=== PATIENT | female | born 1945 | race Caucasian/White ===

== ENCOUNTER 2019-08-12 15:06 | Outpatient (CLI) | payer MEDICARE ==
--- NOTE | 2019-08-12 15:26 | RAD ---
EXAM: Chest 2 views: HISTORY: Cough COMPARISON: 05/01/2017 FINDINGS: There is a normal-sized cardiomediastinal silhouette. There is no evidence of consolidation, mass, or pleural effusion. The bones are unremarkable. IMPRESSION: No evidence of acute cardiopulmonary disease
== END 2019-08-12 15:07 | disposition home or self-care (01) ==
LOC: MADRAD 15:06
PROVIDERS: ATTEND Physician Assistant
DX: R05 Cough (principal)
CPT/HCPCS: 71046

== ENCOUNTER 2019-10-23 13:53 | Inpatient (IN) | payer MEDICARE ==
[2019-10-23] MEDS ORDERED: HYDROcodone/Acetaminophen 5/325 mg Tablet PO PRN (19:32)
[2019-10-23] MEDS ORDERED: Bisacodyl 5 MG TAB PO PRN (19:32)
[2019-10-23] MEDS ORDERED: Acetaminophen 325 MG TAB PO PRN (19:34)
[2019-10-23] MEDS ORDERED: Ondansetron ODT 4 MG TAB PO PRN (19:34)
[2019-10-23] MEDS ORDERED: Ondansetron ODT 4 MG TAB SL PRN (20:00)
[2019-10-23] MEDS: Docusate 100 MG CAP PO SCH (20:51)
[2019-10-23] MEDS: HYDROcodone/Acetaminophen 5/325 mg Tablet PO PRN (20:52)
[2019-10-23] MEDS: Famotidine 20 MG TAB PO SCH (20:52)
[2019-10-23] MEDS: Zolpidem Tartrate 5 MG TAB PO PRN (21:46)
[2019-10-24] MEDS: HYDROcodone/Acetaminophen 5/325 mg Tablet PO PRN ×4 (06:13→19:54)
[2019-10-24] MEDS: Docusate 100 MG CAP PO SCH ×2 (08:42→20:49)
[2019-10-24] MEDS: Enoxaparin Sodium 40 MG/0.4 ML SYRINGE SC SCH (08:42)
[2019-10-24] MEDS: Losartan 25 MG TAB PO SCH (08:43)
[2019-10-24] MEDS: Hydrochlorothiazide 25 MG TAB PO SCH (08:43)
[2019-10-24] MEDS: FLUoxetine HCl 20 MG CAP PO SCH (08:43)
[2019-10-24] MEDS: Famotidine 20 MG TAB PO SCH ×2 (08:45→20:50)
[2019-10-24] MEDS ORDERED: Azithromycin 250 MG TAB PO SCH (13:00)
[2019-10-24] MEDS ORDERED: predniSONE 20 MG TAB PO SCH ×2 (13:00→13:15)
--- NOTE | 2019-10-24 14:42 | RAD ---
CHEST 2 VIEWS: HISTORY: Wheezing and shortness of breath. COMPARISON: Radiograph 08/12/2019. FINDINGS: Partially calcified breast implants. The contour is mildly tortuous. Lungs are without focal conflu ent airspace consolidation, pneumothorax, or effusion. No acute osseous abnormality. Old right disk clavicular fracture is healed. IMPRESSION: 1. No acute intrathoracic abnormality. 2. Healing right disk clavicular fracture. POS: OFF
[2019-10-24] MEDS: Montelukast Sodium 10 mg Tablet PO SCH (20:49)
[2019-10-24] MEDS: Zolpidem Tartrate 5 MG TAB PO PRN (22:33)
[2019-10-25] MEDS: HYDROcodone/Acetaminophen 5/325 mg Tablet PO PRN ×4 (05:19→20:12)
[2019-10-25] MEDS: Polyethylene Glycol 3350 17 GM Packet PO SCH (08:50)
[2019-10-25] MEDS: Enoxaparin Sodium 40 MG/0.4 ML SYRINGE SC SCH (08:50)
[2019-10-25] MEDS: Docusate 100 MG CAP PO SCH ×2 (08:50→20:17)
[2019-10-25] MEDS: Losartan 25 MG TAB PO SCH (08:51)
[2019-10-25] MEDS: Hydrochlorothiazide 25 MG TAB PO SCH (08:51)
[2019-10-25] MEDS: Famotidine 20 MG TAB PO SCH ×2 (08:51→20:15)
[2019-10-25] MEDS: FLUoxetine HCl 20 MG CAP PO SCH (08:51)
[2019-10-25] MEDS: Magnesium Oxide 400 MG TAB PO SCH (08:51)
[2019-10-25] MEDS ORDERED: MAGNESIUM OXIDE 200 MG PO SCH (09:00)
[2019-10-25] MEDS ORDERED: Azithromycin 250 MG TAB PO SCH (13:00)
[2019-10-25] MEDS: Zolpidem Tartrate 5 MG TAB PO PRN (20:13)
[2019-10-25] MEDS: Montelukast Sodium 10 mg Tablet PO SCH (20:15)
[2019-10-26] MEDS: Losartan 25 MG TAB PO SCH (09:00)
[2019-10-26] MEDS: Docusate 100 MG CAP PO SCH ×2 (09:00→20:25)
[2019-10-26] MEDS: Enoxaparin Sodium 40 MG/0.4 ML SYRINGE SC SCH (09:00)
[2019-10-26] MEDS: Famotidine 20 MG TAB PO SCH ×2 (09:01→20:25)
[2019-10-26] MEDS: FLUoxetine HCl 20 MG CAP PO SCH (09:01)
[2019-10-26] MEDS: Hydrochlorothiazide 25 MG TAB PO SCH (09:01)
[2019-10-26] MEDS: Magnesium Oxide 400 MG TAB PO SCH (09:01)
[2019-10-26] MEDS: Polyethylene Glycol 3350 17 GM Packet PO SCH (09:02)
[2019-10-26] MEDS: HYDROcodone/Acetaminophen 5/325 mg Tablet PO PRN ×3 (11:01→18:55)
[2019-10-26] MEDS ORDERED: Bisacodyl 10 MG SUPP PR PRN (18:10)
[2019-10-26] MEDS ORDERED: Bisacodyl 5 MG TAB PO PRN (18:10)
[2019-10-26] MEDS ORDERED: Fleet Enema 133 ML BOT FS PRN (18:11)
[2019-10-26] MEDS: Montelukast Sodium 10 mg Tablet PO SCH (20:25)
[2019-10-26] MEDS: Zolpidem Tartrate 5 MG TAB PO PRN (21:13)
[2019-10-27] MEDS: HYDROcodone/Acetaminophen 5/325 mg Tablet PO PRN (06:06)
[2019-10-27] MEDS: Losartan 25 MG TAB PO SCH (08:44)
[2019-10-27] MEDS: Magnesium Oxide 400 MG TAB PO SCH (08:44)
[2019-10-27] MEDS: Enoxaparin Sodium 40 MG/0.4 ML SYRINGE SC SCH (08:45)
[2019-10-27] MEDS: Famotidine 20 MG TAB PO SCH ×2 (08:45→20:37)
[2019-10-27] MEDS: Polyethylene Glycol 3350 17 GM Packet PO SCH (08:45)
[2019-10-27] MEDS: Hydrochlorothiazide 25 MG TAB PO SCH (08:45)
[2019-10-27] MEDS: Docusate 100 MG CAP PO SCH ×2 (08:46→20:37)
[2019-10-27] MEDS: FLUoxetine HCl 20 MG CAP PO SCH (08:49)
--- NOTE | 2019-10-27 08:59 | HP ---
PRIMARY CARE PHYSICIAN: Dr. Lashay Hardwick. REASON FOR ADMISSION: For skilled rehabilitation status post right intertrochanteric femur fracture, status post internal fixation of the repair. HISTORY OF PRESENT ILLNESS: Ms. English is a 73-year-old female with a medical history of hypertension, hyperlipidemia, questionable Parkinson disease, asthma, prolonged QT interval, and history of breast cancer. The patient states she was in her home and stepped back while brushing her teeth and tripped on a rug, and landed on right side. She did not lose any consciousness. She did not have immediate pain until she tried to move and she was unable to stand , so she presented to the emergency room. In the ER, she was found to have a right intertrochanteric femur fracture. She denies any pain anywhere else and she denies any chest pain, lightheadedness, dizziness, or palpitations prior to fall. The patient also admitted to exertional dyspnea for the past 6 months and was scheduled to see a capability lead in November for this. She was sent to [facility], and she was evaluated by the orthopedic surgeon, Dr. Perez, who went ahead and performed internal fixation and IM nailing of the right proximal femur. The patient did not have any complications postoperatively and she was able to start mild therapy when she was in [facility]. She states she was not able to get out of bed yet. The decision was made to transfer the patient here as she lives at home with her 76-year-old , who is also aged and it was best to transfer here for skilled rehabilitation prior to discharge back to her home. Upon evaluation of the patient today, she was very happy to be in the facility. She complains of some shortness of breath and wheezing. She denies any chest pain. She denies any palpitation. She denies any nausea or vomiting. No fevers. PAST MEDICAL HISTORY: Hypertension, hyperlipidemia, depression, asthma. PAST SURGICAL HISTORY: The patient denies any surgery. CODE STATUS: The patient is a full code. Her is a surrogate decision maker. SOCIAL HISTORY: The patient lives at home with her in [facility]. She is . She has been off tobacco use for over 30 years. Alcohol, she states she has 1 to 2 alcohol drinks with vodka daily. She denies any illicit drug use. FAMILY HISTORY: Mother of congestive heart failure at the age of 80. Father at old age of 90. REVIEW OF SYSTEMS: GENERAL: The patient denies fever, chills, or nausea. HEENT: No headache, ear pain, rhinorrhea, no vision changes. RESPIRATORY: The patient complains of wheezing, exertional shortness of breath. CARDIOVASCULAR: Denies chest pain, palpitations, syncope, or peripheral edema. GASTROINTESTINAL: Denies nausea, vomiting, or abdominal pain. No change in bowel habits. GENITOURINARY: Denies dysuria or hematuria. MUSCULOSKELETAL: The patient complains of gait instability and right hip pain. HEMATOLOGICAL: Denies bruising or bleeding easily. NEUROLOGICAL: No focal deficits. DERMATOLOGIC: No rashes. PSYCHIATRIC: Complains of depression, controlled with fluoxetine. MEDICATIONS: 1. Prozac 40 daily. 2. Hydrochlorothiazide 25 daily. 3. Mag-Ox 200 daily. 4. Losartan 50 daily. 5. Atorvastatin 10 mg daily. PHYSICAL EXAMINATION: VITAL SIGNS: Temperature 97.6, pulse 92, respirations 18, O2 saturations 96% on 2 L nasal cannula, and blood pressure 133/63. GENERAL: The patient is alert, awake, and oriented x3. Very pleasant, cooperative, interactive, in no apparent distress. HEENT: Normocephalic, atraumatic. Oral; moist mucous membranes. Front upper teeth chipped. EOMs intact. CARDIOVASCULAR: S1 and S2. No murmurs. RESPIRATORY: Bilateral wheezing. No crackles. No rales. ABDOMEN: Positive bowel sounds. Soft, nontender, nondistended. EXTREMITIES: No edema. SKIN: Lateral right hip with incision site with radha in place. No drainage. No signs of infection. Mild bruising. PSYCHIATRIC: Normal affect. NEUROLOGIC: Cranial nerves 2 through 12 grossly intact. ASSESSMENT: 1. Physical deconditioning. 2. Status post IM nailing and internal fixation of right femur. 3. Exertional dyspnea. 4. Acute mild asthma exacerbation. 5. Hypertension. 6. Depression. PLAN: The patient is a 73-year-old female, who has been admitted for acute rehabilitation, status post fall resulted in a fracture of the right femur. The patient is now status post IM nailing and IF. We will consult Physical Therapy to help with gait strengthening, balance, and ambulation. We will consult Occupational Therapy to help with activities of daily living. We will place the patient on Lovenox for DVT prophylaxis and Pepcid for GI prophylaxis. We will restart the patient's home medications. We will place the patient on [place] p.r.n. for pain. For asthma, we will start the patient on DuoNeb q.6 p.r.n. We will slowly try to wean the patient off nasal cannula oxygen. We will monitor the patient closely for any hemodynamic instability. We will start the patient on Singulair. ESTIMATED LENGTH OF STAY: 3 to 4 weeks. DISCHARGE DISPOSITION: Back to home with her . Job ID: [id number] MTDD
[2019-10-27] MEDS: HYDROcodone/Acetaminophen 7.5/325 mg Tablet PO PRN ×2 (10:59→19:27)
[2019-10-27] MEDS ORDERED: predniSONE 20 MG TAB PO SCH (14:00)
[2019-10-27] MEDS ORDERED: Azithromycin 250 MG TAB PO SCH (14:00)
[2019-10-27] MEDS: Montelukast Sodium 10 mg Tablet PO SCH (20:36)
[2019-10-27] MEDS: Zolpidem Tartrate 5 MG TAB PO PRN (21:32)
[2019-10-28] MEDS: HYDROcodone/Acetaminophen 7.5/325 mg Tablet PO PRN ×4 (04:03→20:51)
[2019-10-28] MEDS: Azithromycin 250 MG TAB PO SCH (08:35)
[2019-10-28] MEDS: Docusate 100 MG CAP PO SCH ×2 (08:35→20:47)
[2019-10-28] MEDS: Famotidine 20 MG TAB PO SCH ×2 (08:35→20:47)
[2019-10-28] MEDS: FLUoxetine HCl 20 MG CAP PO SCH (08:35)
[2019-10-28] MEDS: predniSONE 20 MG TAB PO SCH (08:35)
[2019-10-28] MEDS: Magnesium Oxide 400 MG TAB PO SCH (08:36)
[2019-10-28] MEDS: Hydrochlorothiazide 25 MG TAB PO SCH (08:36)
[2019-10-28] MEDS: Losartan 25 MG TAB PO SCH (08:36)
[2019-10-28] MEDS: Polyethylene Glycol 3350 17 GM Packet PO SCH (08:37)
[2019-10-28] MEDS: Enoxaparin Sodium 40 MG/0.4 ML SYRINGE SC SCH (08:37)
[2019-10-28] MEDS: Montelukast Sodium 10 mg Tablet PO SCH (20:47)
[2019-10-28] MEDS: Zolpidem Tartrate 5 MG TAB PO PRN (21:30)
[2019-10-29] MEDS: HYDROcodone/Acetaminophen 7.5/325 mg Tablet PO PRN ×4 (03:52→18:11)
[2019-10-29] MEDS: Magnesium Oxide 400 MG TAB PO SCH (08:16)
[2019-10-29] MEDS: FLUoxetine HCl 20 MG CAP PO SCH (08:16)
[2019-10-29] MEDS: Azithromycin 250 MG TAB PO SCH (08:16)
[2019-10-29] MEDS: Docusate 100 MG CAP PO SCH ×2 (08:17→20:28)
[2019-10-29] MEDS: Hydrochlorothiazide 25 MG TAB PO SCH (08:17)
[2019-10-29] MEDS: Losartan 25 MG TAB PO SCH (08:17)
[2019-10-29] MEDS: predniSONE 20 MG TAB PO SCH (08:17)
[2019-10-29] MEDS: Enoxaparin Sodium 40 MG/0.4 ML SYRINGE SC SCH (08:18)
[2019-10-29] MEDS: Famotidine 20 MG TAB PO SCH ×2 (08:19→20:29)
[2019-10-29] MEDS: Polyethylene Glycol 3350 17 GM Packet PO SCH (08:19)
[2019-10-29] MEDS: Montelukast Sodium 10 mg Tablet PO SCH (20:29)
[2019-10-29] MEDS: Zolpidem Tartrate 5 MG TAB PO PRN (21:28)
[2019-10-30] MEDS: HYDROcodone/Acetaminophen 7.5/325 mg Tablet PO PRN ×5 (01:49→21:40)
[2019-10-30] MEDS: Losartan 25 MG TAB PO SCH (09:08)
[2019-10-30] MEDS: Hydrochlorothiazide 25 MG TAB PO SCH (09:08)
[2019-10-30] MEDS: Docusate 100 MG CAP PO SCH ×2 (09:08→20:21)
[2019-10-30] MEDS: Famotidine 20 MG TAB PO SCH ×2 (09:08→20:22)
[2019-10-30] MEDS: Polyethylene Glycol 3350 17 GM Packet PO SCH (09:08)
[2019-10-30] MEDS: Enoxaparin Sodium 40 MG/0.4 ML SYRINGE SC SCH (09:08)
[2019-10-30] MEDS: Magnesium Oxide 400 MG TAB PO SCH (09:08)
[2019-10-30] MEDS: FLUoxetine HCl 20 MG CAP PO SCH (09:11)
[2019-10-30 12:04] VITALS: BMI 22.6
[2019-10-30] MEDS: Montelukast Sodium 10 mg Tablet PO SCH (20:22)
[2019-10-30] MEDS: Zolpidem Tartrate 5 MG TAB PO PRN (22:46)
[2019-10-31] MEDS: HYDROcodone/Acetaminophen 7.5/325 mg Tablet PO PRN ×3 (08:21→19:47)
[2019-10-31] MEDS: FLUoxetine HCl 20 MG CAP PO SCH (08:22)
[2019-10-31] MEDS: Hydrochlorothiazide 25 MG TAB PO SCH (08:23)
[2019-10-31] MEDS: Docusate 100 MG CAP PO SCH ×2 (08:23→21:45)
[2019-10-31] MEDS: Famotidine 20 MG TAB PO SCH ×2 (08:23→21:44)
[2019-10-31] MEDS: Losartan 25 MG TAB PO SCH (08:23)
[2019-10-31] MEDS: Magnesium Oxide 400 MG TAB PO SCH (08:23)
[2019-10-31] MEDS: Polyethylene Glycol 3350 17 GM Packet PO SCH (08:24)
[2019-10-31] MEDS: Enoxaparin Sodium 40 MG/0.4 ML SYRINGE SC SCH (08:24)
[2019-10-31] MEDS: Zolpidem Tartrate 5 MG TAB PO PRN (21:44)
[2019-10-31] MEDS: Montelukast Sodium 10 mg Tablet PO SCH (21:44)
[2019-11-01] MEDS: Losartan 25 MG TAB PO SCH (08:20)
[2019-11-01] MEDS: FLUoxetine HCl 20 MG CAP PO SCH (08:20)
[2019-11-01] MEDS: Famotidine 20 MG TAB PO SCH ×2 (08:21→21:23)
[2019-11-01] MEDS: Hydrochlorothiazide 25 MG TAB PO SCH (08:21)
[2019-11-01] MEDS: Magnesium Oxide 400 MG TAB PO SCH (08:21)
[2019-11-01] MEDS: Enoxaparin Sodium 40 MG/0.4 ML SYRINGE SC SCH (08:21)
[2019-11-01] MEDS: Polyethylene Glycol 3350 17 GM Packet PO SCH (08:23)
[2019-11-01] MEDS: Docusate 100 MG CAP PO SCH ×2 (08:23→21:25)
[2019-11-01] MEDS: HYDROcodone/Acetaminophen 7.5/325 mg Tablet PO PRN ×3 (08:49→21:24)
[2019-11-01] MEDS: Montelukast Sodium 10 mg Tablet PO SCH (21:23)
[2019-11-01] MEDS: Zolpidem Tartrate 5 MG TAB PO PRN (22:19)
[2019-11-02] MEDS: HYDROcodone/Acetaminophen 7.5/325 mg Tablet PO PRN ×3 (05:35→20:05)
[2019-11-02] MEDS: Docusate 100 MG CAP PO SCH ×2 (08:13→20:05)
[2019-11-02] MEDS: Magnesium Oxide 400 MG TAB PO SCH (08:13)
[2019-11-02] MEDS: Polyethylene Glycol 3350 17 GM Packet PO SCH (08:13)
[2019-11-02] MEDS: Famotidine 20 MG TAB PO SCH ×2 (08:14→20:05)
[2019-11-02] MEDS: Hydrochlorothiazide 25 MG TAB PO SCH (08:14)
[2019-11-02] MEDS: Enoxaparin Sodium 40 MG/0.4 ML SYRINGE SC SCH (08:14)
[2019-11-02] MEDS: FLUoxetine HCl 20 MG CAP PO SCH (08:14)
[2019-11-02] MEDS: Losartan 25 MG TAB PO SCH (08:14)
[2019-11-02] MEDS: Montelukast Sodium 10 mg Tablet PO SCH (20:05)
[2019-11-02] MEDS: Zolpidem Tartrate 5 MG TAB PO PRN (21:52)
[2019-11-03] MEDS: HYDROcodone/Acetaminophen 7.5/325 mg Tablet PO PRN ×4 (03:25→21:35)
[2019-11-03] MEDS: Polyethylene Glycol 3350 17 GM Packet PO SCH (08:55)
[2019-11-03] MEDS: Enoxaparin Sodium 40 MG/0.4 ML SYRINGE SC SCH (08:55)
[2019-11-03] MEDS: Famotidine 20 MG TAB PO SCH ×2 (08:56→21:35)
[2019-11-03] MEDS: Magnesium Oxide 400 MG TAB PO SCH (08:56)
[2019-11-03] MEDS: FLUoxetine HCl 20 MG CAP PO SCH (08:56)
[2019-11-03] MEDS: Docusate 100 MG CAP PO SCH ×2 (08:57→21:34)
[2019-11-03] MEDS: Losartan 25 MG TAB PO SCH (08:57)
[2019-11-03] MEDS: Hydrochlorothiazide 25 MG TAB PO SCH (08:57)
[2019-11-03] MEDS ORDERED: Naproxen 500 MG TAB PO SCH (20:00)
[2019-11-03] MEDS: Montelukast Sodium 10 mg Tablet PO SCH (21:35)
[2019-11-03] MEDS: Zolpidem Tartrate 5 MG TAB PO PRN (23:03)
[2019-11-04] MEDS: HYDROcodone/Acetaminophen 7.5/325 mg Tablet PO PRN ×3 (05:22→21:03)
[2019-11-04] MEDS: Naproxen 500 MG TAB PO SCH ×2 (09:06→17:14)
[2019-11-04] MEDS: Hydrochlorothiazide 25 MG TAB PO SCH (09:07)
[2019-11-04] MEDS: Magnesium Oxide 400 MG TAB PO SCH (09:07)
[2019-11-04] MEDS: FLUoxetine HCl 20 MG CAP PO SCH (09:07)
[2019-11-04] MEDS: Docusate 100 MG CAP PO SCH ×2 (09:07→21:03)
[2019-11-04] MEDS: Famotidine 20 MG TAB PO SCH ×2 (09:07→21:03)
[2019-11-04] MEDS: Losartan 25 MG TAB PO SCH (09:07)
[2019-11-04] MEDS: Polyethylene Glycol 3350 17 GM Packet PO SCH (09:08)
[2019-11-04] MEDS: Enoxaparin Sodium 40 MG/0.4 ML SYRINGE SC SCH (09:10)
[2019-11-04] MEDS: Montelukast Sodium 10 mg Tablet PO SCH (21:03)
[2019-11-05] MEDS: HYDROcodone/Acetaminophen 7.5/325 mg Tablet PO PRN ×3 (07:16→19:07)
[2019-11-05] MEDS: Enoxaparin Sodium 40 MG/0.4 ML SYRINGE SC SCH (08:14)
[2019-11-05] MEDS: Magnesium Oxide 400 MG TAB PO SCH (08:15)
[2019-11-05] MEDS: Polyethylene Glycol 3350 17 GM Packet PO SCH ×2 (08:15→08:18)
[2019-11-05] MEDS: Famotidine 20 MG TAB PO SCH ×2 (08:15→20:02)
[2019-11-05] MEDS: FLUoxetine HCl 20 MG CAP PO SCH (08:15)
[2019-11-05] MEDS: Naproxen 500 MG TAB PO SCH ×2 (08:15→17:08)
[2019-11-05] MEDS: Losartan 25 MG TAB PO SCH (08:16)
[2019-11-05] MEDS: Docusate 100 MG CAP PO SCH ×2 (08:16→20:01)
[2019-11-05] MEDS: Hydrochlorothiazide 25 MG TAB PO SCH (08:16)
[2019-11-05 09:32] LABS: #Basophils 0.1 thou/uL (0.0-0.2); #Eosinphils 0.1 thou/uL (0.0-0.7); #Lymphocytes 0.7 thou/uL (1.20-3.40); #Monocytes 0.8 thou/uL (0.11-0.59); #Neutrophils 5.7 thou/uL (1.40-6.50); %Basophils 1.3 % (0.0-1.0); %Eosinophils 1.9 % (0.0-10.0); %Lymphocytes 9.3 % (21.0-51.0); %Monocytes 10.3 % (0.0-10.0); %Neutrophils 77.3 % (42.0-75.0); Hemoglobin 10.3 g/dL (12.0-16.0); Mean Corpuscular HGB CONC 31.7 g/dL (32.0-36.0); Mean Corpuscular Hemoglobin 29.1 pg (27.0-31.0); Mean Corpuscular Volume 91.8 fL (78.0-98.0); Mean Platelet Volume 5.4 fL (7.4-10.4); Platelet Count 730 thou/uL (130-400); RBC Distribution Width 10.8 % (11.5-14.5); Red Blood Cell (RBC) Count 3.53 mill/uL (4.20-5.40); White Blood Cell (WBC) Count 7.3 thou/uL (4.8-10.8)
[2019-11-05 09:45] LABS: Anion Gap 15 mmol/L (10-20); BUN (Urea Nitrogen) 12 mg/dL (9.8-20.1); Calc. Creatinine Clearance 71 mL/min (70-130); Calcium 9.4 mg/dL (7.8-10.44); Carbon Dioxide 29 mmol/L (23-31); Chloride 83 mmol/L (98-107); Estimated GFR-MDRD 76; Glucose 97 mg/dL (83-110); Magnesium 2.2 mg/dL (1.6-2.6); Potassium 3.6 mmol/L (3.5-5.1); Sodium 123 mmol/L (136-145)
[2019-11-05] MEDS: Montelukast Sodium 10 mg Tablet PO SCH (20:02)
[2019-11-05] MEDS: Zolpidem Tartrate 5 MG TAB PO PRN (21:42)
[2019-11-06] MEDS: HYDROcodone/Acetaminophen 7.5/325 mg Tablet PO PRN ×4 (03:58→22:24)
[2019-11-06] MEDS: Enoxaparin Sodium 40 MG/0.4 ML SYRINGE SC SCH (08:14)
[2019-11-06] MEDS: Naproxen 500 MG TAB PO SCH ×2 (08:14→17:01)
[2019-11-06] MEDS: Famotidine 20 MG TAB PO SCH ×2 (08:15→21:31)
[2019-11-06] MEDS: Hydrochlorothiazide 25 MG TAB PO SCH (08:16)
[2019-11-06] MEDS: Magnesium Oxide 400 MG TAB PO SCH (08:16)
[2019-11-06] MEDS: Docusate 100 MG CAP PO SCH ×2 (08:16→21:31)
[2019-11-06] MEDS: Losartan 25 MG TAB PO SCH (08:16)
[2019-11-06] MEDS: FLUoxetine HCl 20 MG CAP PO SCH (08:16)
[2019-11-06] MEDS: Polyethylene Glycol 3350 17 GM Packet PO SCH (08:17)
[2019-11-06] MEDS: Montelukast Sodium 10 mg Tablet PO SCH (21:31)
[2019-11-06] MEDS: Zolpidem Tartrate 5 MG TAB PO PRN (21:31)
[2019-11-07] MEDS: HYDROcodone/Acetaminophen 7.5/325 mg Tablet PO PRN ×2 (07:28→17:44)
[2019-11-07] MEDS: Naproxen 500 MG TAB PO SCH ×2 (08:16→17:43)
[2019-11-07] MEDS: Enoxaparin Sodium 40 MG/0.4 ML SYRINGE SC SCH (09:17)
[2019-11-07] MEDS: Docusate 100 MG CAP PO SCH ×2 (09:17→21:52)
[2019-11-07] MEDS: Famotidine 20 MG TAB PO SCH ×2 (09:18→21:53)
[2019-11-07] MEDS: FLUoxetine HCl 20 MG CAP PO SCH (09:18)
[2019-11-07] MEDS: Hydrochlorothiazide 25 MG TAB PO SCH (09:19)
[2019-11-07] MEDS: Losartan 25 MG TAB PO SCH (09:20)
[2019-11-07] MEDS: Magnesium Oxide 400 MG TAB PO SCH (09:20)
[2019-11-07] MEDS: Polyethylene Glycol 3350 17 GM Packet PO SCH (09:21)
[2019-11-07] MEDS: Zolpidem Tartrate 5 MG TAB PO PRN (21:53)
[2019-11-07] MEDS: Montelukast Sodium 10 mg Tablet PO SCH (21:53)
[2019-11-08] MEDS: FLUoxetine HCl 20 MG CAP PO SCH (08:25)
[2019-11-08] MEDS: Docusate 100 MG CAP PO SCH ×3 (08:27→20:50)
[2019-11-08] MEDS: Naproxen 500 MG TAB PO SCH ×2 (08:28→17:19)
[2019-11-08] MEDS: Losartan 25 MG TAB PO SCH (08:28)
[2019-11-08] MEDS: Enoxaparin Sodium 40 MG/0.4 ML SYRINGE SC SCH (08:29)
[2019-11-08] MEDS: Hydrochlorothiazide 25 MG TAB PO SCH (08:29)
[2019-11-08] MEDS: Magnesium Oxide 400 MG TAB PO SCH (08:29)
[2019-11-08] MEDS: Famotidine 20 MG TAB PO SCH ×2 (08:29→20:47)
[2019-11-08] MEDS: Polyethylene Glycol 3350 17 GM Packet PO SCH (08:30)
[2019-11-08] MEDS: HYDROcodone/Acetaminophen 7.5/325 mg Tablet PO PRN ×4 (08:31→22:04)
[2019-11-08] MEDS: Montelukast Sodium 10 mg Tablet PO SCH (20:47)
[2019-11-08] MEDS: Zolpidem Tartrate 5 MG TAB PO PRN (22:03)
[2019-11-09] MEDS: HYDROcodone/Acetaminophen 7.5/325 mg Tablet PO PRN ×3 (05:34→21:20)
[2019-11-09] MEDS: Losartan 25 MG TAB PO SCH (08:51)
[2019-11-09] MEDS: Magnesium Oxide 400 MG TAB PO SCH (08:52)
[2019-11-09] MEDS: Naproxen 500 MG TAB PO SCH ×2 (08:53→16:28)
[2019-11-09] MEDS: Famotidine 20 MG TAB PO SCH ×2 (08:53→21:20)
[2019-11-09] MEDS: Hydrochlorothiazide 25 MG TAB PO SCH (08:53)
[2019-11-09] MEDS: FLUoxetine HCl 20 MG CAP PO SCH (08:53)
[2019-11-09] MEDS: Polyethylene Glycol 3350 17 GM Packet PO SCH (08:54)
[2019-11-09] MEDS: Enoxaparin Sodium 40 MG/0.4 ML SYRINGE SC SCH (08:54)
[2019-11-09] MEDS: Docusate 100 MG CAP PO SCH ×2 (08:54→21:19)
[2019-11-09] MEDS: Montelukast Sodium 10 mg Tablet PO SCH (21:20)
[2019-11-10] MEDS: HYDROcodone/Acetaminophen 7.5/325 mg Tablet PO PRN ×3 (08:06→19:25)
[2019-11-10] MEDS: Enoxaparin Sodium 40 MG/0.4 ML SYRINGE SC SCH (08:08)
[2019-11-10] MEDS: Hydrochlorothiazide 25 MG TAB PO SCH (08:09)
[2019-11-10] MEDS: FLUoxetine HCl 20 MG CAP PO SCH (08:09)
[2019-11-10] MEDS: Naproxen 500 MG TAB PO SCH ×2 (08:09→17:12)
[2019-11-10] MEDS: Docusate 100 MG CAP PO SCH ×2 (08:09→20:25)
[2019-11-10] MEDS: Famotidine 20 MG TAB PO SCH ×2 (08:09→20:24)
[2019-11-10] MEDS: Polyethylene Glycol 3350 17 GM Packet PO SCH (08:10)
[2019-11-10] MEDS: Magnesium Oxide 400 MG TAB PO SCH (08:10)
[2019-11-10] MEDS: Losartan 25 MG TAB PO SCH (08:10)
[2019-11-10] MEDS: Montelukast Sodium 10 mg Tablet PO SCH (20:24)
[2019-11-10] MEDS: Zolpidem Tartrate 5 MG TAB PO PRN (21:37)
[2019-11-11] MEDS: Losartan 25 MG TAB PO SCH (08:51)
[2019-11-11] MEDS: Magnesium Oxide 400 MG TAB PO SCH (08:53)
[2019-11-11] MEDS: Polyethylene Glycol 3350 17 GM Packet PO SCH (08:54)
[2019-11-11] MEDS: Famotidine 20 MG TAB PO SCH ×2 (08:54→21:25)
[2019-11-11] MEDS: Docusate 100 MG CAP PO SCH ×2 (08:55→21:25)
[2019-11-11] MEDS: Naproxen 500 MG TAB PO SCH ×2 (08:55→17:29)
[2019-11-11] MEDS: Enoxaparin Sodium 40 MG/0.4 ML SYRINGE SC SCH ×2 (08:55→09:04)
[2019-11-11] MEDS: FLUoxetine HCl 20 MG CAP PO SCH (08:58)
[2019-11-11] MEDS: Hydrochlorothiazide 25 MG TAB PO SCH (08:59)
[2019-11-11] MEDS: HYDROcodone/Acetaminophen 7.5/325 mg Tablet PO PRN (11:26)
[2019-11-11 19:43] VITALS: TEMP 97.3
[2019-11-11] MEDS: Zolpidem Tartrate 5 MG TAB PO PRN (21:25)
[2019-11-11] MEDS: Montelukast Sodium 10 mg Tablet PO SCH (21:25)
[2019-11-12] MEDS: HYDROcodone/Acetaminophen 7.5/325 mg Tablet PO PRN ×2 (06:12→15:01)
[2019-11-12 06:57] VITALS: BP 147/65
[2019-11-12] MEDS: Docusate 100 MG CAP PO SCH (08:30)
[2019-11-12] MEDS: Naproxen 500 MG TAB PO SCH (08:30)
[2019-11-12] MEDS: Magnesium Oxide 400 MG TAB PO SCH (08:31)
[2019-11-12] MEDS: FLUoxetine HCl 20 MG CAP PO SCH (08:31)
[2019-11-12] MEDS: Losartan 25 MG TAB PO SCH (08:31)
[2019-11-12] MEDS: Enoxaparin Sodium 40 MG/0.4 ML SYRINGE SC SCH (08:31)
[2019-11-12] MEDS: Polyethylene Glycol 3350 17 GM Packet PO SCH (08:32)
[2019-11-12] MEDS: Hydrochlorothiazide 25 MG TAB PO SCH (08:32)
[2019-11-12] MEDS: Famotidine 20 MG TAB PO SCH (08:32)
--- NOTE | 2019-11-13 07:14 | DIS ---
DATE OF ADMISSION: 10/23/2019 DATE OF DISCHARGE: 11/12/2019 DISCHARGE DISPOSITION: Back to home with her . DISCHARGE MEDICATIONS: 1. [place] 7.5/325 one tab q.4 hours p.r.n. 2. Tylenol 650 q.4 p.r.n. 3. DuoNeb 3 mL q.6 hours p.r.n. shortness of breath. 4. Prozac 40 mg daily. 5. Hydrochlorothiazide 25 mg daily. 6. Losartan 50 mg daily. 7. Mag-Ox 400 daily. 8. Singulair 10 mg q.p.m. 9. Naproxen 500 b.i.d. DISCHARGE DIAGNOSES: 1. Right intertrochanteric fracture, status post open reduction and internal fixation. 2. Gait instability, improving. 3. Exertional dyspnea, improving. 4. Depression. 5. Hypertension. 6. Physical deconditioning, much improved. 7. Thrombocytosis. 8. Acute on chronic anemia, improved. DISCHARGE INSTRUCTIONS: The patient is to follow up with PCP, Dr. Brown, November 21, 2019. Repeat CBC as an outpatient. Repeat BNP as an outpatient. Follow up with Dr. Eastman, Orthopedic Surgeon, November 20. Follow up with Dr. Zamudio, Estimator Project Manager, November 18. The patient is to start outpatient physical therapy at [facility]. BRIEF HOSPITAL COURSE: Ms. English is a very pleasant 73-year-old female, who lives in a home with her . The patient sustained a fall and landed on her right side. The patient was seen in the emergency room and noted to have a right intertrochanteric fracture. She was seen by Orthopedic Surgeon, Dr. Perez, who went ahead and performed an internal fixation and IM nailing of the right proximal femur. The patient also had complained of 6 months history of exertional dyspnea with some wheezing. She already scheduled an outpatient followup with the steerer, Dr. Zamudio for the 18 of November. The patient had no complications postoperatively, but had to be on oxygen. She was subsequently transferred here to [facility] for skilled rehabilitation prior to discharge back to her home. The patient during the hospitalization tolerated skilled rehab and PT, but initially this was very slow due to exertional dyspnea. The patient needed oxygen, and due to shortness of breath and wheezing, the patient was put on DuoNeb, which helped significantly. Chest x-ray was done on October 24 and showed no consolidation, effusion, or pneumothorax. The patient was treated with a course of steroid and antibiotic and these helped. The patient continued to need oxygen for therapy and she progressively improved. By November 10, the patient was able to be weaned off the oxygen and she tolerated this well. O2 saturation without oxygen was running in the 96%. The patient had radha to the right lateral incision site and this was taken out without any complications. Initially, the pain was not controlled with the hydrocodone, but naproxen b.i.d. was added and this helped significantly. The patient participated with therapy nicely. She progressively improved. By day of discharge, the patient was able to ambulate with a rolling walker. She was able to transfer with minimal fatigue. The patient was able to ambulate 500 feet on day of discharge with a rolling walker and she chose to come to skilled rehabilitation here at [facility] as an outpatient. The patient was discharged home in a stable condition. She was given followup appointments and medications were sent to pharmacy of choice. Job ID: [id number]
== END 2019-11-12 17:05 | disposition home or self-care (01) | DRG 560 ==
LOC: MADMS 16:20
PROVIDERS: ADMIT Family Medicine; ATTEND Family Medicine
DX: Z47.89 Encounter for other orthopedic aftercare (principal); J45.901 Unspecified asthma with (acute) exacerbation; I82.90 Acute embolism and thrombosis of unspecified vein; I10 Essential (primary) hypertension; E78.5 Hyperlipidemia, unspecified; F32.9 Major depressive disorder, single episode, unspecified; R06.00 Dyspnea, unspecified; G20 Parkinson's disease; R26.9 Unspecified abnormalities of gait and mobility; D64.9 Anemia, unspecified; D47.3 Essential (hemorrhagic) thrombocythemia; R06.09 Other forms of dyspnea; R53.81 Other malaise; Z82.49 Family history of ischemic heart disease and other diseases of the circulatory system; Z98.890 Other specified postprocedural states; Z85.3 Personal history of malignant neoplasm of breast
CPT/HCPCS: 36415; 71046; 80048; 83735; 85025; J1650; J7512; J7620

== ENCOUNTER 2021-06-27 14:09 | Outpatient (CLI) | payer MEDICARE | END 2021-06-27 14:10 | disposition home or self-care (01) | LOC: MADCT 14:09 | PROVIDERS: ATTEND Registered Nurse | DX: S06.2X9A Diffuse traumatic brain injury with loss of consciousness of unspecified duration, initial encounter (principal); W19.XXXA Unspecified fall, initial encounter | CPT/HCPCS: 70450 ==

== ENCOUNTER 2021-07-15 14:42 | Outpatient (CLI) | payer MEDICARE | END 2021-07-15 14:43 | disposition home or self-care (01) | LOC: MADRAD 14:42 | PROVIDERS: ATTEND Registered Nurse | DX: M25.511 Pain in right shoulder (principal); W19.XXXA Unspecified fall, initial encounter ==

== ENCOUNTER 2022-06-06 15:39 | Outpatient (CLI) | payer MEDICARE ==
[~2022-06-06 15:39] MED LIST: Iopamidol 370 76% 100 ML VIAL ONE
== END 2022-06-06 15:40 | disposition home or self-care (01) ==
LOC: MADCT 15:39
PROVIDERS: ATTEND Registered Nurse
DX: R10.13 Epigastric pain (principal); R63.0 Anorexia; K57.90 Diverticulosis of intestine, part unspecified, without perforation or abscess without bleeding; E27.8 Other specified disorders of adrenal gland
CPT/HCPCS: 36415; 74177; 82565; Q9967